=== PATIENT | female | born 1970 | race Caucasian/White ===

== ENCOUNTER 2021-06-30 23:12 | Inpatient (IN) | payer MEDICAID ==
[~2021-06-30] VITALS: Ht 167.6 cm; Wt 61.7 kg
[2021-06-30] MEDS ORDERED: DEXTROSE 50% WATER 50ML SYRINGE IV ONE (23:45)
[2021-07-01] VITALS (10 sets, daily range): BP systolic 127–167; BP diastolic 27–97
[2021-07-01 00:16] LABS: BASOPHILS % 0.3 % (0.0-2.0); EOSINOPHILS % 0.3 % (0.0-5.0); HEMATOCRIT. 52.1 % (36.0-48.0); HEMOGLOBIN. 16.9 g/dL (12.0-16.0); LYMPHOCYTES % 13.1 % (20.0-50.0); MEAN CORPUSCULAR HEMOGLOBIN 31.5 pg (28.0-32.0); MEAN CORPUSCULAR VOLUME 96.9 fL (81.0-99.0); MEAN PLATELET VOLUME 7.7 fl (7.4-10.4); MONOCYTES % 5.7 % (2.0-8.0); NEUTROPHILS % 80.6 % (40.0-76.0); PLATELET 195 x1000/uL (130-400); RED BLOOD CELL COUNT 5.37 mill/uL (4.2-5.4); RED CELL DISTRIBUTION WIDTH 12.8 % (11.6-14.6)
[2021-07-01 00:23] LABS: CHLORIDE 89 mEq/L (98-107)
[2021-07-01 00:29] LABS: ETHANOL BLOOD 88 mg/dL
[2021-07-01] MEDS ORDERED: VANCOMYCIN 1 G PREMIX 200 ML IV SCH (01:15)
[2021-07-01] MEDS ORDERED: SODIUM CHLORIDE 0.9% 1000ML BAG (SEPSIS BOLUS) IV ONE (01:15)
[2021-07-01] MEDS ORDERED: PIPERACILLIN/TAZOBACTAM 3.375GM/50ML PREMIX IV ONE (01:15)
[2021-07-01] MEDS ORDERED: SODIUM CHLORIDE 0.9% 1,000 ML IV ONE (02:30)
[2021-07-01] MEDS ORDERED: ONDANSETRON HCL 4MG/2ML INJ IV PRN (03:00)
[2021-07-01] MEDS ORDERED: CEFTRIAXONE 1 G PREMIX 50 ML IV SCH (04:00)
[2021-07-01] MEDS ORDERED: THIAMINE HCL 100 MG in SODIUM CHLORIDE 0.9% 49 ML IV NR (04:00)
[2021-07-01 04:25] LABS: PHOSPHORUS 12.3 mg/dL (2.5-4.9)
[2021-07-01] MEDS ORDERED: SODIUM BICARBONATE 100 MEQ in DEXTROSE 5% WATER 1,000 ML IV SCH (04:30)
[2021-07-01] MEDS: DIPHENHYDRAMINE 50MG/ML VIAL IV PRN (04:39)
[2021-07-01] MEDS: DEXT 5%/0.45% NACL 1000ML 1,000 ML IV SCH ×2 (04:56→12:11)
[2021-07-01] MEDS ORDERED: NALOXONE HCL 0.4MG/ML VIAL IV PRN (05:30)
[2021-07-01] MEDS ORDERED: CEFTRIAXONE 1,000 MG in DEXTROSE 5% WATER 50 ML IV SCH (06:00)
[2021-07-01] MEDS: MORPHINE SULFATE 2 MG/ML CPJ (NOT FOR IM USE) IV PRN ×4 (06:33→21:49)
[2021-07-01] MEDS: PANTOPRAZOLE SODIUM 40 MG/VIAL IV SCH (09:42)
[2021-07-01 14:45] LABS: BG BASE EXCESS -1.3 mmol/L (-2.0-2.0); BG CARBOXYHEMOGLOBIN 1.1 % (0.5-1.5); BG DEOXYHEMOGLOBIN 4.1 % (0.0-5.0); BG FRACTION INSPIRED OXYGEN 21; BG HCO3 ACT 21.3 mmol/L (22.0-26.0); BG OXYGEN SATURATION 95.9 % (92.0-98.5); BG OXYHEMOGLOBIN 94.8 % (94.0-97.0); BG PCO2 30.5 mmHg (35.0-45.0); BG PH 7.461 (7.350-7.450); BG PO2 82.3 mmHg (75.0-100.0); BG SAMPLE SITE RIGHT BRACHIAL; BG TOTAL HEMOGLOBIN 15.8 g/dL (12.0-18.0); BG VENT MODE ROOM AIR
[2021-07-01 15:17] LABS: CLARITY URINE CLOUDY (CLEAR); COLOR URINE DARK YELLOW (YELLOW); KETONES URINE 1+ (NEGATIVE); LEUKOCYTE ESTERASE URINE TRACE (NEGATIVE); NITRITE URINE NEGATIVE (NEGATIVE); OCCULT BLOOD URINE 2+ (NEGATIVE); PH URINE 5.5 (4.5-8.0); PROTEIN URINE 2+ (NEGATIVE); SPECIFIC GRAVITY URINE 1.023 (1.005-1.030); UROBILINOGEN URINE 0.2 E.U./dL (0.2-1.0)
[2021-07-01 15:35] LABS: *AMPHETAMINES SCREEN URINE NEGATIVE (NEGATIVE); *BARBITURATES SCREEN URINE NEGATIVE (NEGATIVE)
[2021-07-01 15:36] LABS: *BENZODIAZEPINES SCREEN URINE NEGATIVE (NEGATIVE); *COCAINE SCREEN URINE NEGATIVE (NEGATIVE); METHADONE URINE SCREEN NEGATIVE (NEGATIVE); PHENCYCLIDINE URINE SCREEN NEGATIVE (NEGATIVE)
[2021-07-01 15:37] LABS: CANNABINOID URINE SCREEN NEGATIVE (NEGATIVE)
[2021-07-01 15:47] LABS: OPIATES URINE SCREEN PRESUMTIVE POSITIVE (NEGATIVE); SODIUM URINE RANDOM < 5 mEq/L
[2021-07-01 15:47] LABS: BASOPHILS % 0.1 % (0.0-2.0); EOSINOPHILS % 1.1 % (0.0-5.0); HEMATOCRIT. 47.3 % (36.0-48.0); HEMOGLOBIN. 16.1 g/dL (12.0-16.0); LYMPHOCYTES % 9.2 % (20.0-50.0); MEAN CORPUSCULAR HEMOGLOBIN 31.7 pg (28.0-32.0); MEAN CORPUSCULAR VOLUME 92.9 fL (81.0-99.0); MONOCYTES % 5.1 % (2.0-8.0); NEUTROPHILS % 84.5 % (40.0-76.0); PLATELET 101 x1000/uL (130-400); RED BLOOD CELL COUNT 5.09 mill/uL (4.2-5.4); RED CELL DISTRIBUTION WIDTH 12.7 % (11.6-14.6)
[2021-07-01 15:49] LABS: CHLORIDE 92 mEq/L (98-107)
[2021-07-01 15:54] LABS: BETA HYDROXYBUTYRATE 0.5 mMol/L (0.0-0.3)
[2021-07-01 15:55] LABS: PHOSPHORUS 4.3 mg/dL (2.5-4.9)
[2021-07-01 16:09] LABS: CREATINE KINASE 1046 IU/L (26-192)
[2021-07-01] MEDS ORDERED: MAGNESIUM 2 G PREMIX 50 ML IV SCH (18:00)
[2021-07-02] VITALS (12 sets, daily range): BP systolic 116–149; BP diastolic 65–86
[2021-07-02] MEDS: DEXT 5%/0.45% NACL 1000ML 1,000 ML IV SCH ×2 (02:07→09:06)
[2021-07-02] MEDS: MORPHINE SULFATE 2 MG/ML CPJ (NOT FOR IM USE) IV PRN ×4 (04:18→20:27)
[2021-07-02 06:37] LABS: CHLORIDE 96 mEq/L (98-107)
[2021-07-02 06:44] LABS: PHOSPHORUS 2.1 mg/dL (2.5-4.9)
[2021-07-02 06:51] LABS: BASOPHILS % 0.1 % (0.0-2.0); HEMATOCRIT. 39.1 % (36.0-48.0); HEMOGLOBIN. 13.4 g/dL (12.0-16.0); LYMPHOCYTES % 7.6 % (20.0-50.0); MEAN CORPUSCULAR HEMOGLOBIN 30.9 pg (28.0-32.0); MEAN CORPUSCULAR VOLUME 90.3 fL (81.0-99.0); MEAN PLATELET VOLUME 8.6 fl (7.4-10.4); MONOCYTES % 3.7 % (2.0-8.0); NEUTROPHILS % 86.6 % (40.0-76.0); PLATELET 81 x1000/uL (130-400); RED BLOOD CELL COUNT 4.33 mill/uL (4.2-5.4); RED CELL DISTRIBUTION WIDTH 12.6 % (11.6-14.6)
[2021-07-02] MEDS: PANTOPRAZOLE SODIUM 40 MG/VIAL IV SCH (09:05)
[2021-07-02] MEDS ORDERED: DEXTROSE 50% WATER 50ML SYRINGE IV PRN (10:30)
[2021-07-02] MEDS: INSULIN LISPRO 100 UNITS/ML SUBCUT SCH ×3 (13:13→20:32)
[2021-07-02] MEDS: BLOOD SUGAR DIAGNOSTIC STRIP TEST SCH ×3 (13:13→21:00)
[2021-07-02] MEDS ORDERED: GUAIFENESIN/CODEINE 200-20MG/10ML UDC PO PRN (14:30)
[2021-07-02] MEDS ORDERED: GUAIFENESIN-DM 200MG-20MG/10ML UDC PO PRN (15:00)
[2021-07-02] MEDS: SODIUM CHLORIDE 0.9% 1,000 ML IV SCH ×2 (15:00→20:31)
[2021-07-02] MEDS ORDERED: POTASSIUM PHOS,M-BASIC-D-BASIC 20 MMOL in DEXT 5% WATER 243.3333 ML IV NR (16:30)
[2021-07-02] MEDS: MULTIVITAMINS,THER W-MINERALS TABLET PO SCH (16:46)
[2021-07-02] MEDS: DIPHENHYDRAMINE 50MG/ML VIAL IV PRN (20:31)
[2021-07-03] VITALS (10 sets, daily range): BP systolic 140–159; BP diastolic 70–88
[2021-07-03] MEDS: MORPHINE SULFATE 2 MG/ML CPJ (NOT FOR IM USE) IV PRN ×2 (03:48→11:50)
[2021-07-03 04:49] LABS: CHLORIDE 100 mEq/L (98-107)
[2021-07-03 04:56] LABS: PHOSPHORUS 1.5 mg/dL (2.5-4.9)
[2021-07-03 04:58] LABS: CREATINE KINASE 120 IU/L (26-192)
[2021-07-03 05:37] LABS: BASOPHILS % 0.2 % (0.0-2.0); EOSINOPHILS % 0.8 % (0.0-5.0); HEMATOCRIT. 36.6 % (36.0-48.0); HEMOGLOBIN. 12.4 g/dL (12.0-16.0); LYMPHOCYTES % 11.4 % (20.0-50.0); MEAN CORPUSCULAR HEMOGLOBIN 30.8 pg (28.0-32.0); MEAN CORPUSCULAR VOLUME 91.3 fL (81.0-99.0); MEAN PLATELET VOLUME 8.6 fl (7.4-10.4); MONOCYTES % 4.6 % (2.0-8.0); PLATELET 62 x1000/uL (130-400); RED BLOOD CELL COUNT 4.01 mill/uL (4.2-5.4); RED CELL DISTRIBUTION WIDTH 12.3 % (11.6-14.6)
[2021-07-03 07:12] LABS: *CREATININE RANDOM URINE 127.3 mg/dL (Not Estab.); MICROALBUMIN RANDOM URINE 96.3 ug/mL (Not Estab.)
[2021-07-03] MEDS: BLOOD SUGAR DIAGNOSTIC STRIP TEST SCH ×2 (07:30→12:56)
[2021-07-03] MEDS: INSULIN LISPRO 100 UNITS/ML SUBCUT SCH ×2 (08:00→13:25)
[2021-07-03] MEDS: MULTIVITAMINS,THER W-MINERALS TABLET PO SCH (09:04)
[2021-07-03] MEDS: PANTOPRAZOLE SODIUM 40 MG/VIAL IV SCH (09:04)
[2021-07-03] MEDS ORDERED: POTASSIUM CHLORIDE 20MEQ TABLET SR PO SCH (14:00)
[2021-07-03] MEDS: DIPHENHYDRAMINE 50MG/ML VIAL IV PRN (14:33)
[2021-07-03] MEDS: POTASSIUM-SODIUM PHOSPHATE POWDER PACKET PO SCH ×2 (14:36→20:30)
[2021-07-03] MEDS ORDERED: CLONIDINE 0.1MG TABLET PO PRN (15:45)
[2021-07-03] MEDS ORDERED: AMLODIPINE 5MG TABLET PO SCH (16:00)
== END 2021-07-03 22:35 | disposition left against medical advice (07) ==
LOC: ER 23:12 → 5EST 07-01 02:26 → ENRESERV 07-01 03:04
PROVIDERS: ADMIT Internal Medicine; ATTEND Internal Medicine
DX: K80.20 Calculus of gallbladder without cholecystitis without obstruction (principal); N17.0 Acute kidney failure with tubular necrosis; G93.41 Metabolic encephalopathy; K85.90 Acute pancreatitis without necrosis or infection, unspecified; D69.6 Thrombocytopenia, unspecified; E83.39 Other disorders of phosphorus metabolism; E83.51 Hypocalcemia; E87.1 Hypo-osmolality and hyponatremia; M62.82 Rhabdomyolysis; F10.129 Alcohol abuse with intoxication, unspecified; E87.2 Acidosis; Z53.29 Procedure and treatment not carried out because of patient's decision for other reasons; K75.9 Inflammatory liver disease, unspecified; E16.2 Hypoglycemia, unspecified; Y90.4 Blood alcohol level of 80-99 mg/100 ml; I10 Essential (primary) hypertension; K76.0 Fatty (change of) liver, not elsewhere classified; R73.9 Hyperglycemia, unspecified; F10.139 Alcohol abuse with withdrawal, unspecified; Z98.82 Breast implant status; Z59.00 Homelessness unspecified
CPT/HCPCS: 36415; 36600; 71045; 76700; 80053; 80305; 80307; 80320; 80329; 81003; 82010; 82043; 82306; 82330; 82375; 82550; 82570; 82805; 82962; 83036; 83605; 83735; 83935; 83970; 84100; 84145; 84300; 84550; 85025; 87106; 99285; C9113; J0696; J1200; J1815; J2270; J2543; J3370; J3411; J3475; J3490; J7030; J7060; J7070; G0480